=== PATIENT | female | born 1985 | race Hispanic/Latino ===

== ENCOUNTER 2018-02-28 11:48 | Emergency (ER) | payer MEDICARE ==
[~2018-02-28 11:48] MED LIST: AMOX-426 PO; CLON0.5T12 PO; CLON1TAB12 PO; ERGO500014 PO; ESCI20TA PO; LINA5TAB PO; LISI-617 PO; LORA10TA7 PO; QUET25TA74 PO; TRAM50TA2 PO; VALP250S13 PO
[2018-02-28] MEDS ORDERED: DEXAMETHASONE SOD PHOSPHATE 10MG/ML 1ML VIAL ONE (13:07)
[2018-02-28] MEDS ORDERED: DiphenhydrAMINE HCL 25 MG/10 ML ELIXIR UDCUP ONE (13:07)
[2018-02-28] MEDS ORDERED: FAMOTIDINE 20MG TAB 20 MG TAB ONE (13:08)
== END 2018-02-28 14:06 | disposition home or self-care (01) ==
LOC: EDH 11:48
DX: T78.1XXA Other adverse food reactions, not elsewhere classified, initial encounter (principal); I10 Essential (primary) hypertension; E11.9 Type 2 diabetes mellitus without complications; X58.XXXA Exposure to other specified factors, initial encounter
CPT/HCPCS: 96372; 99283; J1100

== ENCOUNTER 2024-09-17 11:47 | Emergency (ER) | payer OTHER, MEDICARE ==
[~2024-09-17] VITALS: Ht 147.3 cm; Wt 90.7 kg
[~2024-09-17 11:47] MED LIST changes: -CLON0.5T12 PO; +CLON0.5T4 PO; -LISI-617 PO; +LISI5TAB21 PO; +QUET25TA36 PO; -QUET25TA74 PO
--- NOTE | 2024-09-17 12:00 | ERN ---
ED Note History of Present Illness Stated Complaint: GBW Chief Complaint: Weakness Time Seen by MD: 11:53 Dictation: PATIENT IS A 38-YEAR-OLD FEMALE HERE WITH MR, HER FATHER IS A PRINCIPAL HISTORIAN. FATHER STATES SHE HAS BEEN ON MED JAR 0 AND RECENTLY HAD AN INCREASE IN HER DOSE. HE STATES FOR THE LAST TWO WEEKS SHE HAS BEEN WEAKER THAN NORMAL. NO FEVER NO CHILLS NO NAUSEA VOMITING. WENT TO HER PRIMARY CARE DOCTOR TODAY, WAS ADVISED TO COME TO THE EMERGENCY ROOM. Father states he just increase your Manjaro from 5 mg daily to 7.5 mg and that is when the change occurred. He states she has been less vocal not answering questions like she is [age]. FATHER DOES STATE THAT SHE HAS BEEN COMPLAINING OF SORE THROAT FOR THE LAST SEVERAL DAYS Allergies: Coded Allergies: No Known Allergies (Unverified Allergy, Unknown, 12/29/13) Home Meds Active Scripts Tramadol HCl (Ultram) 50 Mg Tab, 50 MG PO q6h PRN for PAIN, #20 TAB Prov:REGINALD DUMONT MD 01/03/14 Amoxicillin/Potassium Clav (Augmentin 500-125 Tablet) 1 Each Tablet, 1 EACH PO BID, #14 TAB Prov:REGINALD DUMONT MD 01/03/14 Reported Medications Lisinopril (Lisinopril) 5 Mg Tablet, 5 MG PO AM, TAB 12/30/13 Escitalopram Oxalate (Lexapro) 20 Mg Tablet, 20 MG PO AM, TAB 12/30/13 Clonazepam (Clonazepam) 1 Mg Tablet, 1 MG PO HS, TAB 12/30/13 Clonazepam (Clonazepam) 0.5 Mg Tablet, 0.5 MG PO AM, TAB 12/30/13 Ergocalciferol (Vitamin D2) (Vitamin D2) 50,000 Unit Capsule, 16801 UNIT PO QWEEK, CAP 12/30/13 Quetiapine Fumarate (Quetiapine Fumarate) 25 Mg Tablet, 25 MG PO HS, TAB 12/30/13 Linagliptin (Tradjenta) 5 Mg Tablet, 5 MG PO AM, TAB 12/30/13 Loratadine (Loratadine) 10 Mg Tablet, 10 MG PO AM, TAB 12/30/13 Valproate Sodium (Valproic Acid) 250 Mg/5 Ml Disp.syrin, 250 MG PO BID, DIS.SYR 12/30/13 Past Medical History Past Medical History: Diabetes-Type II, High Cholesterol, Hypertension, Other Additional Past Medical Hx: MR Surgical History: Cholecystectomy History: Not Applicable RN Note Reviewed/Agreed w/PFSH: Yes Review of System Dictation CONSTITUTIONAL: Negative except for HPI generalized body weakness HEAD/FACE: Negative except for HPI EENT: Negative except for HPI RESPIRATORY: Negative except for HPI GASTROINTESTINAL/ABDOMINAL: Negative except for HPI GENITOURINARY: Negative except for HPI MUSCULOSKELETAL: Negative except for HPI INTEGUMENTARY: Negative except for HPI NEUROLOGICAL/PSYCH: Negative except for HPI HEMATOLOGIC/LYMPHATIC: Negative except for HPI All Systems Negative, Except as noted above. 13 point review of systems assessed and all negative except for above. Initial Vital Sign VS Vital Signs Date Time Temp Pulse Resp B/P (MAP) Pulse Ox O2 Delivery O2 Flow Rate FiO2 09/17/24 11:47 99.9 109 20 124/78 99 Room Air 0 Physical Exam Dictation Vital Signs reviewed General Appearance: Alert, oriented x alert and oriented x1, nonverbal with HIGH SCALER. She is talking minimally to her father. No overt neuro deficits Head and Face: non-traumatic. Eyes: PERRL, pink conjunctivas, eyelid no trauma, anterior chamber with arcus senilis. Ears: Pinnas intact and no signs of trauma or erythema ear canals clear and no discharge TM no erythema Nose: No discharge, no bleeding. Oropharynx: Mouth normal, tongue pink, pharynx clear,n MODERATE PHARYNGEAL ERYTHEMA erythema, tonsils no exudates, no abscesses noted, mucous membrane moist UVULA MIDLINE Neck: Supple, non-tender, no thyromegaly, no masses, no JVD, no bruits Breast:Deferred Chest:No tenderness, no crepitus, no paradoxical movement, no retractions Lungs:Clear, well-ventilated, symmetric, no rales, no wheezing, no rhonchi, no stridor, good breath sounds bilaterally Heart: Regular rate, regular rhythm, no murmur, no gallops Vascular: no peripheral edema, Abdomen: Soft, positive bowel sounds, nondistended, no guarding, nontender, no rebound, no masses no hepatomegaly, no splenomegaly, no Clifton's sign, no hernias. Rectal: Deferred Genital: Deferred Neurological: Normal speech, motor function intact, sensory function intact no sign of CVA Musculoskeletal: Neck nontender, full range of motion, back nontender, full range of motion, Extremities: nontender, full range of motion Skin: Color pink, dry, no turgor, no rash, no lacerations, no abrasions, no contusions. Lymphatic: Deferred Results (Laboratory/Radiology) Laboratory/Radiology Laboratory Tests Test 09/17/24 12:02 09/17/24 12:21 09/17/24 13:38 Urine Color LIGHT-YELLOW (YELLOW) Urine Appearance CLEAR (CLEAR) Urine pH 5.0 (5.0-8.0) Urine Specific [place] 1.020 (1.001-1.031) Urine Protein NEGATIVE mg/dL (NEGATIVE) Urine Glucose (UA) NEGATIVE mg/dL (NEGATIVE) Urine Ketones NEGATIVE mg/dL (NEGATIVE) Urine Occult Blood NEGATIVE (NEGATIVE) Urine Nitrate NEGATIVE (NEGATIVE) Urine Bilirubin NEGATIVE mg/dL (NEGATIVE) Urine Urobilinogen 0.2 mg/dL (0.2-1.0) Urine Leukocyte Esterase NEGATIVE Tre/uL Urine HCG, Qualitative NEGATIVE (NEGATIVE) Sodium Level 135 mmol/L (136-145) L Potassium Level 4.8 mmol/L (3.5-5.1) Chloride Level 99 mmol/L (101-111) L Carbon Dioxide Level 26 mmol/L (21-32) Blood Urea Nitrogen 15 mg/dL (7-18) Creatinine 0.5 mg/dL (0.5-1.0) Glomerular Filtration Rate Calc 123 mL/min (>90) Random Glucose 122 mg/dL (70-105) H Total Calcium 9.3 mg/dL (8.5-10.1) Lipase 35 U/L (16-77) White Blood Count 6.7 K/uL (4.8-10.8) Red Blood Count 4.32 MIL/uL (4.00-5.50) Hemoglobin 11.7 g/dL (12.0-16.0) L Hematocrit 35.6 % (36-48) L Mean Corpuscular Volume 82.4 fL (79-99) Mean Corpuscular Hemoglobin 27.1 pg (27.0-33.0) Mean Corpuscular Hemoglobin Concent 32.9 g/dL (32.0-36.0) Red Cell Distribution Width 15.5 % (11.0-15.5) Platelet Count 315 K/uL (130-400) Mean Platelet Volume 9.6 fL (7.5-10.5) Immature Granulocyte % (Auto) 0.3 % (0-1) Neutrophils (%) (Auto) 55.9 % (40.0-77.0) Lymphocytes (%) (Auto) 32.0 % (21.0-51.0) Monocytes (%) (Auto) 10.5 % (3.0-13.0) Eosinophils (%) (Auto) 0.9 % (0.0-8.0) Basophils (%) (Auto) 0.4 % (0.0-5.0) Neutrophils # (Auto) 3.8 K/uL (1.8-7.7) Lymphocytes # (Auto) 2.2 K/uL (1.0-4.8) Monocytes # (Auto) 0.7 K/uL (0.1-1.0) Eosinophils # (Auto) 0.06 K/uL (0.00-0.70) Basophils # (Auto) 0.03 K/uL (0.00-0.20) Absolute Immature Granulocyte (auto 0.02 K/uL (0-1) Nucleated Red Blood Cells 0.0 % (0.0-0.19) Labs Reviewed?: Yes ED Course ED Course Orders Procedure Category Date Status Time ,Urine Test LAB 09/17/24 Complete 11:57 Urinalysis Profile LAB 09/17/24 Complete 11:57 Lipase LAB 09/17/24 Complete 11:57 Basic Metabolic Panel LAB 09/17/24 Complete 11:57 Cbc With Differential LAB 09/17/24 Complete 13:20 Vital Signs Date Time Temp Pulse Resp B/P (MAP) Pulse Ox O2 Delivery O2 Flow Rate FiO2 09/17/24 11:47 99.9 109 20 124/78 99 Room Air 0 1345/SPOKE WITH FATHER AT LENGTH REGARDING CLINICAL FINDINGS TO INCLUDE URINE AND BLOOD. HE IS AWARE PATIENT IS MILDLY DEHYDRATED DISCHARGED HOME WITH HYDRATION INSTRUCTIONS. Medical Decision Making MDM MDM: DIFFERENTIAL DIAGNOSIS: UTI/ELECTROLYTE IMBALANCE/DEHYDRAT ION/PHARYNGITIS/TONSILLITIS/SEPSIS RATIONALE: TESTS CONSIDERED AND ORDERED SECONDARY TO SHARED DECISION MAKING INCLUDE: LABS PREVIOUS OUTSIDE RECORDS REVIEWED: OLD ER VISITS. RISK OF COMPLICATION AND/OR MORBIDITY OR MORTALITY OF PATIENT MANAGEMENT: NONE MEDICATIONS-PER MEDICATION RECONCILIATION NEED FOR HOSPITALIZATION: PATIENT DOES NOT MEET CRITERIA FOR HOSPITALIZATION. NO NEED FOR EMERGENCY MAJOR/MINOR SURGERY: NO THERE ARE NO SOCIAL CONCERNS WITH THIS PATIENT. PRESCRIPTION DRUG MANAGEMENT AUGMENTIN PRESCRIPTIONS WILL INCLUDE SYMPTOMATIC CARE PATIENT'S PRIOR EXTERNAL MEDICAL RECORDS FROM OTHER ER VISITS WERE REVIEWED BY ME INDICATED. PRIOR TESTING AND RESULTS FROM PREVIOUS VISITS WERE REVIEWED. PRIOR TESTS WERE TAKEN INTO ACCOUNT WITH MEDICAL DECISION MAKING AND RESOURCE UTILIZATION, INDEPENDENT HISTORIAN/HISTORIANS WERE USED TO OBTAIN COMPLETE MEDICAL HISTORY. I INDEPENDENTLY INTERPRETED THE TEST THAT WERE PERFORMED, RESULTS WERE REVIEWED BY ME AND CONSIDERED FINDINGS ON RADIOLOGY IF ORDERED. MEDICAL MANAGEMENT AND EXAMINATION INTERPRETATION DISCUSSIONS WERE HAD BY ME WITH OTHER QUALIFIED HEALTHCARE PROFESSIONALS INDICATED FOR THE PATIENT'S CARE. DX & DISP Disposition: Discharge Departure Impression: Primary Impression: Acute pharyngitis, unspecified Additional Impressions: Hyponatremia, Dehydration, Fever Condition: Stable Scripts Azithromycin (Zithromax Tri-Sam) 500 Mg Tablet 500 MG PO DAILY for 7 Days, #7 TAB Prov: ALBERT DUNCAN PASSENGER VESSEL CHEF 09/17/24 Additional Instructions: Follow-up with primary care provider in 1 to 2 days. Take medications as directed here in the emergency room. Okay to continue home medications unless otherwise discussed during your visit in the emergency room today. Return to your nearest emergency room if symptoms worsen or if there is no improvement. Call 911 if you need immediate assistance. Take Tylenol or Motrin [id number] as needed and if no contraindications are present. Increase oral hydration. A wound culture or urine culture was ordered here in the emergency room department please follow-up with primary care provider and advise them to get repeat ports from our facility. If you had any Marcin wrap/splints that were applied here, please do not remove them until you see your primary care or specialty. Take azithromycin as directed until gone. Offer increase fluids with Gatorade o r Powerade sips every 15 or 20 minutes while awake. Tylenol or Motrin [id number] as needed for fever pain. Follow up with your primary care doctor. Referrals: WICHO CLEMENTS (PCP) Time of Disposition: 13:52 I have reviewed the case, and I agree with, Diagnosis and Plan ALBERT DUNCAN NP Sep 17, 2024 12:00
[2024-09-17 12:14] LABS: APPEARANCE,URINE CLEAR (CLEAR); GLUCOSE, URINE (UA) NEGATIVE (NEGATIVE); LEUKOCYTE ESTERASE ,URINE NEGATIVE Leu/uL (NEGATIVE); NITRATE,URINE NEGATIVE (NEGATIVE); OCCULT BLOOD,URINE NEGATIVE (NEGATIVE)
[2024-09-17 12:15] LABS: ADD UA MICROSCOPIC NO
[2024-09-17 12:25] LABS: HCG,QUALITATIVE URINE NEGATIVE (NEGATIVE)
[2024-09-17 12:40] LABS: CREATININE 0.5 mg/dL (0.5-1.0); GLOMERULAR FILTR. RATE CALC 123.0 mL/min (>90); GLUCOSE,RANDOM 122.0 mg/dL (70-105); SODIUM SERUM 135.0 mmol/L (136-145); UREA NITROGEN, BLOOD 15.0 mg/dL (7-18)
[2024-09-17 13:44] LABS: IMMATURE GRANULOCYTE ABSOLUTE 0.02 K/uL (0-1); NUCLEATED RED BLOOD CELLS 0.0 % (0.0-0.19); PLATELET COUNT (AUTO) 315 K/uL (130-400); RED BLOOD CELL COUNT(AUTO) 4.32 MIL/uL (4.00-5.50); RED CELL DISTRIBUTION WIDTH 15.5 % (11.0-15.5); WHITE BLOOD COUNT (AUTO) 6.7 K/uL (4.8-10.8)
[2024-09-17] MEDS ORDERED: AZIT500T2 PO (13:53)
[2024-09-17 14:11] VITALS: BP 118/76; PULSE 100; RESP 20; TEMP 98.6; O2SAT 99
== END 2024-09-17 14:34 | disposition home or self-care (01) ==
LOC: EDH 11:47
DX: J02.9 Acute pharyngitis, unspecified (principal); E87.1 Hypo-osmolality and hyponatremia; E86.0 Dehydration; R50.9 Fever, unspecified; E11.9 Type 2 diabetes mellitus without complications; E78.00 Pure hypercholesterolemia, unspecified; I10 Essential (primary) hypertension; Z79.899 Other long term (current) drug therapy; Z90.49 Acquired absence of other specified parts of digestive tract
CPT/HCPCS: 99283; 80048; 83690; 85025; 81003; 81025; 36415; 96372; J0696

== ENCOUNTER → 2025-03-02 | Outpatient (CLI) | payer OTHER, MEDICARE ==
[~2025-03-02] MED LIST changes: +AZIT500T2 PO
--- NOTE | 2025-03-10 13:39 | HMCIMG ---
EXAM: MR right Lower Extremity without IV contrast, Knee. CLINICAL HISTORY: M17.11 Unilateral primary osteoarthritis, right knee TECHNIQUE: Multisequence, multiplanar magnetic resonance images of the right knee without intravenous contrast. Series acquired: 4 - AX T2 - TR: 5229.0 - TE: 100.4 - ET: 21.0 - Thk: 4.0 6 - AX T1 - TR: 738.0 - TE: 17.8 - ET: 4.0 - Thk: 4.0 7 - AX STIR - TR: 6358.0 - TE: 46.6 - ET: 11.0 - Thk: 4.0 9 - COR PD FS - TR: 2710.0 - TE: 19.0 - ET: 8.0 - Thk: 3.0 10 - COR PD - TR: 2282.0 - TE: 19.0 - ET: 9.0 - Thk: 3.0 11 - COR STIR - TR: 4293.0 - TE: 46.4 - ET: 21.0 - Thk: 3.0 12 - SAG PD - TR: 2354.0 - TE: 16.3 - ET: 8.0 - Thk: 3.0 13 - SAG T2 - TR: 4297.0 - TE: 103.3 - ET: 17.0 - Thk: 3.0 CONTRAST: None. COMPARISON: Right knee radiograph August 11, 2008. FINDINGS: LIGAMENTS: ANTERIOR CRUCIATE: Intact. POSTERIOR CRUCIATE: Intact. Ganglion cyst is seen posterior to the PCL at the intracondylar notch measuring 0.7 x 1.8 x 2.8 cm (transverse by AP by craniocaudal). LATERAL COLLATERAL: Intact. MEDIAL COLLATERAL: Intact. TENDONS: QUADRICEPS: Intact. PATELLAR: Intact. LATERAL GASTROCNEMIUS: Intact. MEDIAL GASTROCNEMIUS: Intact. ILIOTIBIAL BAND: Intact. POPLITEUS: Intact. BONES: No acute fracture or aggressive appearing osseous lesion. Tricompartment osteophyte formation. Subchondral cystic change in the lateral femoral condyle. MUSCLES: Visualized muscles demonstrate normal girth and signal intensity. FLUID: Small joint effusion. CARTILAGE: Tricompartment cartilage loss. MENISCI: Vertical tear in the outer one third of the posterior horn of the lateral meniscus. The anterior horn and body of the lateral meniscus are macerated. The medial meniscus is diminutive in size. Horizontal tear is noted in the posterior horn of the medial meniscus with increased signal abutting the inferior articular margin. RETINACULA: The medial and lateral patellar retinacula are intact. Lateral subluxation of the patella by 9 mm. IMPRESSION: 1. Advanced osteoarthritic changes are seen in the right knee, progressed from the prior radiograph of 2008. 2. The medial and lateral menisci are diminutive in size compatible degenerative tearing. 3. Intercondylar notch ganglion cyst located posterior to the PCL. 4. Lateral subluxation of the patella. /[place]
== END | disposition home or self-care (01) ==
LOC: RAH 12:19
PROVIDERS: ATTEND Family Medicine
DX: S83.281A Other tear of lateral meniscus, current injury, right knee, initial encounter (principal); S83.241A Other tear of medial meniscus, current injury, right knee, initial encounter; S83.011A Lateral subluxation of right patella, initial encounter; M17.11 Unilateral primary osteoarthritis, right knee; M25.761 Osteophyte, right knee; M67.461 Ganglion, right knee; M23.8X1 Other internal derangements of right knee; M25.461 Effusion, right knee; X58.XXXA Exposure to other specified factors, initial encounter; Y93.89 Activity, other specified; Y92.89 Other specified places as the place of occurrence of the external cause; Y99.8 Other external cause status
CPT/HCPCS: 73721